=== PATIENT | male | born 1990 ===

== ENCOUNTER 2016-07-21 18:35 | Emergency (ER) | payer SELFPAY ==
[2016-07-21 19:20] VITALS: O2SAT 99
--- NOTE | 2016-07-21 20:35 | C.PDOC ---
History Of Present Illness 26 year old male patient presents to the ED c/o sore throat and fever since yesterday. [facility] [employer] this [place] and was given one tab of amoxicillin and acetaminophen. (+) pain with swallowing (-) no difficulty breathing. Patient denies vomiting, nausea, or any other complaints. Time Seen by Provider: 07/21/16 19:42 Chief Complaint (Nursing): Cough, Cold, Congestion History Per: Patient History/Exam Limitations: no limitations Onset/Duration Of Symptoms: Days Current Symptoms Are (Timing): Still Present Severity: Mild Past Medical History Reviewed: Historical Data, Nursing Documentation, Vital Signs Vital Signs: Last Vital Signs Temp 98.7 F 07/21/16 20:45 Pulse 88 07/21/16 20:45 Resp 18 07/21/16 20:45 BP 120/78 07/21/16 20:45 Pulse Ox 99 07/21/16 21:01 Family History: States: Unknown Family Hx - Social History Hx Alcohol Use: No Hx Substance Use: No Review Of Systems Review Of Systems: ROS cannot be obtained secondary to pt's inabilty to answer questions. (Language barrier) Constitutional: Positive for: Fever ENT: Positive for: Throat Pain Gastrointestinal: Negative for: Nausea, Vomiting Physical Exam - Physical Exam Appears: Non-toxic, No Acute Distress Skin: Warm, Dry Head: Atraumatic, Normacephalic Eye(s): bilateral: Normal Inspection, PERRL, EOMI Ear(s): Bilateral: Normal Nose: Normal Oral Mucosa: Moist Throat: Erythema, Exudate, No Drooling, Other (Tonsiliar swelling, uvula midline no drooling) Neck: Normal, Normal ROM, Supple Chest: Symmetrical Cardiovascular: Rhythm Regular Respiratory: Normal Breath Sounds Neurological/Psych: Oriented x3 ED Course And Treatment O2 Sat by Pulse Oximetry: 99 (Room air) Pulse Ox Interpretation: Normal Progress Note: Plans: Amoxil, Motrin. Patient was instructed to gargle fluids and instructed to follow with PMD for 2 days. Disposition - Disposition Disposition: HOME/ ROUTINE Disposition Time: 20:34 Condition: STABLE Additional Instructions: Vaya a [place] mdico o la clnica en 1-3 lewis sin falta, para mas evaluacin. [place] los medicamentos gifty indicado. Volver a la janene de emergencia en cualquier momento si los sntomas persisten o empeoran. Prescriptions: Amoxicillin 875 mg PO BID #14 tablet Instructions: Tonsillitis (ED) Print Language: MACANESE - Clinical Impression Clinical Impression: Acute bacterial tonsillitis - Scribe Statement The provider has reviewed the documentation as recorded by the Scribe Kel [email or web address] All medical record entries made by the Scribe were at my direction and personally dictated by me. I have reviewed the chart and agree that the record accurately reflects my personal performance of the history, physical exam, medical decision making, and the department course for this patient. I have also personally directed, reviewed, and agree with the discharge instructions and disposition.
[2016-07-21 20:51] VITALS: BP 120/78; PULSE 88; RESP 18; TEMP 98.7
== END 2016-07-21 20:45 | disposition home or self-care (01) ==
LOC: C.ER 18:35
DX: J03.90 Acute tonsillitis, unspecified (principal)